=== PATIENT | female | born 1950 | race Caucasian/White ===

== ENCOUNTER → 2017-01-03 | Outpatient (CLI) | payer OTHER, MEDICARE | LOC: BMCIMAGING 09:40 | PROVIDERS: ATTEND Orthopaedic Surgery | DX: M25.551 Pain in right hip (principal) ==

== ENCOUNTER → 2017-11-08 | Outpatient (CLI) | payer OTHER, MEDICARE | LOC: BMCIMAGING 09:00 | PROVIDERS: ATTEND Nurse Practitioner Adult Health | DX: R05 Cough (principal); R06.02 Shortness of breath; J45.909 Unspecified asthma, uncomplicated ==

== ENCOUNTER → 2017-11-22 | Outpatient (CLI) | payer OTHER, MEDICARE | LOC: BMCIMAGING 08:18 | PROVIDERS: ATTEND Orthopaedic Surgery | DX: M17.11 Unilateral primary osteoarthritis, right knee (principal); M11.261 Other chondrocalcinosis, right knee; M85.48 Solitary bone cyst, other site ==

== ENCOUNTER → 2017-11-23 | Outpatient (CLI) | payer OTHER, MEDICARE | LOC: FIMAGING 11:19 | PROVIDERS: ATTEND Orthopaedic Surgery | DX: M25.561 Pain in right knee (principal); S83.241A Other tear of medial meniscus, current injury, right knee, initial encounter; M76.31 Iliotibial band syndrome, right leg; M25.461 Effusion, right knee; M17.11 Unilateral primary osteoarthritis, right knee; M77.8 Other enthesopathies, not elsewhere classified ==